=== PATIENT | female | born 1945 | race African-American/Black ===

== ENCOUNTER 2021-04-27 21:58 | Inpatient (IN) | payer MEDICARE, MEDICAID ==
[~2021-04-27] VITALS: Ht 167.6 cm; Wt 74.8 kg
[~2021-04-27 21:58] MED LIST: AMLO5TAB4 PO; ATOR40TA70 MT; OMEP10CA5 PO; PRED1TAB PO; TCNYC15 TOP
[2021-04-27] MEDS ORDERED: KETOROLAC 30MG/ML VIAL IV STA (23:30)
[2021-04-28 01:03] LABS: CHLORIDE 107 mEq/L (98-107)
[2021-04-28 01:04] LABS: HEMATOCRIT. 29.8 % (36.0-48.0); HEMOGLOBIN. 9.7 g/dL (12.0-16.0); MEAN CORPUSCULAR HEMOGLOBIN 25.4 pg (28.0-32.0); MEAN CORPUSCULAR VOLUME 78.3 fL (81.0-99.0); MEAN PLATELET VOLUME 7.1 fl (7.4-10.4); PLATELET 448 x1000/uL (130-400); RED CELL DISTRIBUTION WIDTH 18.8 % (11.6-14.6)
[2021-04-28 02:03] LABS: PLATELET ESTIMATE NORMAL
[2021-04-28] MEDS ORDERED: HYDROCODONE/ACETAMINOPHEN 5/325MG TABLET PO ONE (02:45)
[2021-04-28 02:56] LABS: CLARITY URINE CLEAR (CLEAR); COLOR URINE YELLOW (YELLOW); KETONES URINE 1+ (NEGATIVE); LEUKOCYTE ESTERASE URINE 1+ (NEGATIVE); NITRITE URINE NEGATIVE (NEGATIVE); OCCULT BLOOD URINE NEGATIVE (NEGATIVE); PH URINE 6.5 (4.5-8.0); PROTEIN URINE 1+ (NEGATIVE); SPECIFIC GRAVITY URINE 1.022 (1.005-1.030)
[2021-04-28] MEDS ORDERED: ACETAMINOPHEN 325MG TABLET PO PRN (08:45)
[2021-04-28] MEDS ORDERED: ONDANSETRON HCL 4MG/2ML INJ IV PRN (08:45)
[2021-04-28] MEDS ORDERED: IPRATROPIUM/ALBUTEROL 0.5-3(2.5)MG/3ML NEB HHN PRN (08:45)
[2021-04-28] MEDS ORDERED: DIPHENHYDRAMINE 50MG/ML VIAL IV PRN (08:45)
[2021-04-28] MEDS ORDERED: NALOXONE HCL 0.4MG/ML VIAL IV PRN (09:00)
[2021-04-28] MEDS: ENOXAPARIN 40MG/0.4ML SYR SUBCUT SCH (09:26)
[2021-04-28] MEDS: MORPHINE SULFATE 2 MG/ML CPJ (NOT FOR IM USE) IV PRN ×2 (09:43→14:12)
[2021-04-28 13:00] VITALS: BP 151/82
[2021-04-28 13:20] VITALS: BP 151/82
[2021-04-28] MEDS ORDERED: DEXTROSE 50% WATER 50ML SYRINGE IV PRN (15:30)
[2021-04-28 16:00] VITALS: BP 113/74
[2021-04-28] MEDS ORDERED: POTASSIUM CHLORIDE 20MEQ TABLET SR PO NR (17:00)
[2021-04-28] MEDS: BLOOD SUGAR DIAGNOSTIC STRIP TEST SCH ×2 (17:09→21:00)
[2021-04-28] MEDS: INSULIN LISPRO 100 UNITS/ML SUBCUT SCH ×2 (17:09→21:00)
[2021-04-28] MEDS: LEVOFLOXACIN 500MG PREMIX 100 ML IV SCH (18:00)
[2021-04-28 20:00] VITALS: BP 115/71
[2021-04-28 20:08] LABS: TOTAL IRON BINDING CAPACITY 224 ug/dL (250-450)
[2021-04-28] MEDS: ATORVASTATIN CALCIUM 40MG TABLET PO SCH (21:36)
[2021-04-29] VITALS: BP 136/73
[2021-04-29] MEDS: BLOOD SUGAR DIAGNOSTIC STRIP TEST SCH ×4 (06:36→21:00)
[2021-04-29 06:40] VITALS: BP 113/65
[2021-04-29] MEDS: OMEPRAZOLE 20MG CAPSULE EXTENDED RELEASE PO SCH (06:45)
[2021-04-29] MEDS: INSULIN LISPRO 100 UNITS/ML SUBCUT SCH ×4 (06:52→21:00)
[2021-04-29 08:00] VITALS: BP 124/70
[2021-04-29] MEDS: AMLODIPINE 5MG TABLET PO SCH (09:20)
[2021-04-29] MEDS: ENOXAPARIN 40MG/0.4ML SYR SUBCUT SCH (09:21)
[2021-04-29 12:00] VITALS: BP 115/73
[2021-04-29] MEDS: MORPHINE SULFATE 2 MG/ML CPJ (NOT FOR IM USE) IV PRN (15:28)
[2021-04-29 16:00] VITALS: BP 128/63
[2021-04-29] MEDS: LEVOFLOXACIN 500MG PREMIX 100 ML IV SCH (18:30)
[2021-04-29] MEDS: ATORVASTATIN CALCIUM 40MG TABLET PO SCH (21:45)
[2021-04-30] MEDS: OMEPRAZOLE 20MG CAPSULE EXTENDED RELEASE PO SCH (07:12)
[2021-04-30] MEDS: INSULIN LISPRO 100 UNITS/ML SUBCUT SCH ×4 (07:12→20:46)
[2021-04-30] MEDS: BLOOD SUGAR DIAGNOSTIC STRIP TEST SCH ×4 (07:12→20:46)
[2021-04-30] MEDS: AMLODIPINE 5MG TABLET PO SCH (14:45)
[2021-04-30] MEDS: HYDROCODONE/ACETAMINOPHEN 5/325MG TABLET PO PRN (14:46)
[2021-04-30] MEDS: ENOXAPARIN 40MG/0.4ML SYR SUBCUT SCH (14:46)
[2021-04-30 16:00] VITALS: BP 157/74
[2021-04-30] MEDS: LEVOFLOXACIN 250MG TABLET PO SCH (17:25)
[2021-04-30 20:00] VITALS: BP 166/80
[2021-04-30] MEDS: ATORVASTATIN CALCIUM 40MG TABLET PO SCH (20:46)
[2021-04-30] MEDS: CLONIDINE 0.1MG TABLET PO PRN (20:47)
[2021-05-01] VITALS: BP 148/85
[2021-05-01 04:00] VITALS: BP 179/90
[2021-05-01] MEDS: CLONIDINE 0.1MG TABLET PO PRN (05:56)
[2021-05-01] MEDS: BLOOD SUGAR DIAGNOSTIC STRIP TEST SCH ×4 (06:43→21:17)
[2021-05-01] MEDS: FAMOTIDINE 20MG TABLET PO SCH (06:45)
[2021-05-01] MEDS: INSULIN LISPRO 100 UNITS/ML SUBCUT SCH ×4 (07:36→21:00)
[2021-05-01 08:00] VITALS: BP 168/80
[2021-05-01] MEDS: AMLODIPINE 5MG TABLET PO SCH (08:45)
[2021-05-01] MEDS: ENOXAPARIN 40MG/0.4ML SYR SUBCUT SCH (08:45)
[2021-05-01] MEDS: BISACODYL 10MG SUPP PR SCH ×2 (08:46→09:00)
[2021-05-01 09:04] LABS: CHLORIDE 108 mEq/L (98-107)
[2021-05-01 09:11] LABS: BASOPHILS % 1.1 % (0.0-2.0); EOSINOPHILS % 7.3 % (0.0-5.0); HEMATOCRIT. 26.9 % (36.0-48.0); HEMOGLOBIN. 8.9 g/dL (12.0-16.0); LYMPHOCYTES % 26.1 % (20.0-50.0); MEAN CORPUSCULAR VOLUME 78.7 fL (81.0-99.0); MEAN PLATELET VOLUME 7.2 fl (7.4-10.4); MONOCYTES % 10.9 % (2.0-8.0); NEUTROPHILS % 54.6 % (40.0-76.0); PLATELET 436 x1000/uL (130-400); RED BLOOD CELL COUNT 3.42 mill/uL (4.2-5.4); RED CELL DISTRIBUTION WIDTH 18.8 % (11.6-14.6)
[2021-05-01 12:00] VITALS: BP 152/76
[2021-05-01] MEDS ORDERED: NA PHOS,M-B/NA PHOS,DI-BA ENEMA 118ML PR ONE (12:30)
[2021-05-01] MEDS: HYDROCODONE/ACETAMINOPHEN 5/325MG TABLET PO PRN ×2 (13:12→20:45)
[2021-05-01] MEDS: LEVOFLOXACIN 250MG TABLET PO SCH (13:12)
[2021-05-01 16:00] VITALS: BP 136/71
[2021-05-01 20:00] VITALS: BP 155/72
[2021-05-01] MEDS: ATORVASTATIN CALCIUM 40MG TABLET PO SCH (20:44)
[2021-05-01] MEDS ORDERED: POLYETHYLENE GLYCOL 3350 (17GM) 1 DOSE PACK PO SCH (21:00)
[2021-05-02] VITALS: BP 168/79
[2021-05-02 04:00] VITALS: BP 179/78
[2021-05-02] MEDS: HYDROCODONE/ACETAMINOPHEN 5/325MG TABLET PO PRN ×3 (05:05→17:07)
[2021-05-02] MEDS: CLONIDINE 0.1MG TABLET PO PRN (05:10)
[2021-05-02] MEDS: FAMOTIDINE 20MG TABLET PO SCH (06:39)
[2021-05-02] MEDS: BLOOD SUGAR DIAGNOSTIC STRIP TEST SCH ×3 (06:39→17:07)
[2021-05-02] MEDS: INSULIN LISPRO 100 UNITS/ML SUBCUT SCH ×3 (07:50→17:12)
[2021-05-02 08:00] VITALS: BP 137/68
[2021-05-02] MEDS ORDERED: BISACODYL 10MG SUPP PR SCH (09:00)
[2021-05-02] MEDS: AMLODIPINE 5MG TABLET PO SCH (09:45)
[2021-05-02] MEDS: ENOXAPARIN 40MG/0.4ML SYR SUBCUT SCH (09:50)
[2021-05-02] MEDS: LEVOFLOXACIN 250MG TABLET PO SCH (11:29)
[2021-05-02 12:00] VITALS: BP 127/67
[2021-05-02 16:00] VITALS: BP 120/51
[2021-05-02 18:31] VITALS: BP 120/51
== END 2021-05-02 20:25 | disposition home health service (06) | DRG 553 ==
LOC: ER 21:58 → MICUSO 04-28 04:11 → EDBEDREQ 04-28 04:21 → EDBEDREQTM 04-28 04:21 → 6EST 04-28 11:48
PROVIDERS: ADMIT Internal Medicine; ATTEND Internal Medicine
PROC: 0HBRXZZ Excision of Toe Nail, External Approach (ICD-10-PCS; principal; 2021-04-29)
PROC: 0HBRXZZ Excision of Toe Nail, External Approach (ICD-10-PCS; 2021-04-29)
PROC: 0HBRXZZ Excision of Toe Nail, External Approach (ICD-10-PCS; 2021-04-29)
PROC: 0HBRXZZ Excision of Toe Nail, External Approach (ICD-10-PCS; 2021-04-29)
PROC: 0HBRXZZ Excision of Toe Nail, External Approach (ICD-10-PCS; 2021-04-29)
PROC: 0HBRXZZ Excision of Toe Nail, External Approach (ICD-10-PCS; 2021-04-29)
PROC: 0HBRXZZ Excision of Toe Nail, External Approach (ICD-10-PCS; 2021-04-29)
PROC: 0HBRXZZ Excision of Toe Nail, External Approach (ICD-10-PCS; 2021-04-29)
PROC: 0HBRXZZ Excision of Toe Nail, External Approach (ICD-10-PCS; 2021-04-29)
PROC: 0HBRXZZ Excision of Toe Nail, External Approach (ICD-10-PCS; 2021-04-29)
DX: M16.0 Bilateral primary osteoarthritis of hip (principal); G82.50 Quadriplegia, unspecified; G82.20 Paraplegia, unspecified; K59.2 Neurogenic bowel, not elsewhere classified; B37.49 Other urogenital candidiasis; M87.851 Other osteonecrosis, right femur; M47.816 Spondylosis without myelopathy or radiculopathy, lumbar region; I10 Essential (primary) hypertension; D50.9 Iron deficiency anemia, unspecified; E11.9 Type 2 diabetes mellitus without complications; J45.909 Unspecified asthma, uncomplicated; E78.00 Pure hypercholesterolemia, unspecified; K44.9 Diaphragmatic hernia without obstruction or gangrene; L60.2 Onychogryphosis; L84 Corns and callosities; L89.896 Pressure-induced deep tissue damage of other site; L89.159 Pressure ulcer of sacral region, unspecified stage; L85.3 Xerosis cutis; M48.061 Spinal stenosis, lumbar region without neurogenic claudication; N31.9 Neuromuscular dysfunction of bladder, unspecified; Z74.01 Bed confinement status; Z82.49 Family history of ischemic heart disease and other diseases of the circulatory system; Z86.73 Personal history of transient ischemic attack (TIA), and cerebral infarction without residual deficits; Z87.891 Personal history of nicotine dependence; Z88.0 Allergy status to penicillin; Z99.3 Dependence on wheelchair; Z79.899 Other long term (current) drug therapy
CPT/HCPCS: 36415; 72141; 72146; 72148; 73502; 74176; 80048; 80053; 81003; 82728; 82962; 83540; 83550; 85025; 93005; 93970; 97161; 99285; A6261; J1200; J1650; J1885; J1956; J2270; J2405

== ENCOUNTER 2021-11-28 04:05 | Emergency (ER) | payer MEDICARE, MEDICAID ==
[~2021-11-28] VITALS: Ht 170.2 cm; Wt 83.0 kg
[2021-11-28] MEDS ORDERED: SODIUM CHLORIDE 0.9% 1,000 ML IV ONE (04:45)
[2021-11-28 05:21] LABS: BASOPHILS % 0.7 % (0.0-2.0); EOSINOPHILS % 5.4 % (0.0-5.0); HEMATOCRIT. 29.2 % (36.0-48.0); HEMOGLOBIN. 9.5 g/dL (12.0-16.0); LYMPHOCYTES % 18.8 % (20.0-50.0); MEAN CORPUSCULAR HEMOGLOBIN 25.1 pg (28.0-32.0); MEAN CORPUSCULAR VOLUME 77.3 fL (81.0-99.0); MEAN PLATELET VOLUME 7.4 fl (7.4-10.4); MONOCYTES % 7.3 % (2.0-8.0); NEUTROPHILS % 67.8 % (40.0-76.0); PLATELET 335 x1000/uL (130-400); RED BLOOD CELL COUNT 3.77 mill/uL (4.2-5.4); RED CELL DISTRIBUTION WIDTH 16.9 % (11.6-14.6)
[2021-11-28 05:28] LABS: CHLORIDE 103 mEq/L (98-107)
[2021-11-28] MEDS ORDERED: MORPHINE SULFATE 4 MG/ML CPJ (NOT FOR IM USE) IV ONE (05:45)
[2021-11-28 05:52] LABS: CLARITY URINE CLEAR (CLEAR); COLOR URINE YELLOW (YELLOW); KETONES URINE NEGATIVE (NEGATIVE); LEUKOCYTE ESTERASE URINE NEGATIVE (NEGATIVE); NITRITE URINE POSITIVE (NEGATIVE); OCCULT BLOOD URINE NEGATIVE (NEGATIVE); PROTEIN URINE NEGATIVE (NEGATIVE); SPECIFIC GRAVITY URINE 1.007 (1.005-1.030); UROBILINOGEN URINE 0.2 E.U./dL (0.2-1.0)
[2021-11-28] MEDS ORDERED: LABETALOL HCL VIAL 20 MG/4 ML VIAL IV ONE (06:00)
[2021-11-28] MEDS ORDERED: KETOROLAC 30MG/ML VIAL IV NR (06:00)
[2021-11-28] MEDS ORDERED: LABETALOL 5MG/ML SYR 20 MG/4 ML SYRINGE IV ONE ×2 (06:45→12:00)
[2021-11-28] MEDS ORDERED: ACET-2708 MT (06:45)
[2021-11-28] MEDS ORDERED: HYDROCODONE/ACETAMINOPHEN 5/325MG TABLET PO ONE (07:00)
[2021-11-28] MEDS ORDERED: CLONIDINE 0.2MG TABLET PO NR (14:15)
[2021-11-28] MEDS ORDERED: OMEPRAZOLE 20MG CAPSULE EXTENDED RELEASE PO ONE (17:00)
[2021-11-28 20:00] VITALS: BP 146/75
== END 2021-11-28 20:22 | disposition home or self-care (01) ==
LOC: ER 04:05
DX: M25.551 Pain in right hip (principal); G89.29 Other chronic pain; I48.91 Unspecified atrial fibrillation; J45.909 Unspecified asthma, uncomplicated; E11.9 Type 2 diabetes mellitus without complications; I10 Essential (primary) hypertension; Z86.73 Personal history of transient ischemic attack (TIA), and cerebral infarction without residual deficits; Z88.0 Allergy status to penicillin
CPT/HCPCS: 36415; 71045; 73502; 80053; 81003; 83690; 85025; 93005; 96374; 96375; 96376; 99285; J1885; J2270; J3490; J7030; A4315

== ENCOUNTER 2022-02-12 13:21 | Emergency (ER) | payer MEDICARE, MEDICAID ==
[~2022-02-12] VITALS: Ht 167.6 cm; Wt 90.0 kg
[~2022-02-12 13:21] MED LIST changes: +ACET-2708 MT; +LEVO750T46 MT; +POLY10DR EACHEYE
[2022-02-12] MEDS ORDERED: IBUPROFEN 600MG TABLET PO STA (13:43)
[2022-02-12] MEDS ORDERED: HYDROCODONE/ACETAMINOPHEN 5/325MG TABLET PO STA (13:43)
[2022-02-12 14:40] LABS: CLARITY URINE TURBID (CLEAR); COLOR URINE YELLOW (YELLOW); KETONES URINE NEGATIVE (NEGATIVE); LEUKOCYTE ESTERASE URINE 3+ (NEGATIVE); NITRITE URINE NEGATIVE (NEGATIVE); OCCULT BLOOD URINE TRACE (NEGATIVE); PH URINE >=9.0 (4.5-8.0); PROTEIN URINE 1+ (NEGATIVE); SPECIFIC GRAVITY URINE 1.013 (1.005-1.030); UROBILINOGEN URINE 0.2 E.U./dL (0.2-1.0)
[2022-02-12 14:53] LABS: BASOPHILS % 0.5 % (0.0-2.0); EOSINOPHILS % 3.4 % (0.0-5.0); HEMATOCRIT. 30.5 % (36.0-48.0); HEMOGLOBIN. 10.2 g/dL (12.0-16.0); LYMPHOCYTES % 20.2 % (20.0-50.0); MEAN CORPUSCULAR HEMOGLOBIN 24.6 pg (28.0-32.0); MEAN CORPUSCULAR VOLUME 73.3 fL (81.0-99.0); MONOCYTES % 10.7 % (2.0-8.0); NEUTROPHILS % 65.2 % (40.0-76.0); PLATELET 422 x1000/uL (130-400); RED BLOOD CELL COUNT 4.16 mill/uL (4.2-5.4); RED CELL DISTRIBUTION WIDTH 15.9 % (11.6-14.6)
[2022-02-12 15:01] LABS: CHLORIDE 100 mEq/L (98-107)
[2022-02-12] MEDS ORDERED: CEFTRIAXONE 1 G PREMIX 50 ML IV NR (16:00)
[2022-02-12] MEDS ORDERED: CEPH500C2 MT (16:06)
[2022-02-12] MEDS ORDERED: HYDROCODONE/ACETAMINOPHEN 10/325MG TABLET PO ONE (21:15)
[2022-02-13 12:33] VITALS: BP 131/71
== END 2022-02-13 12:40 | disposition home or self-care (01) ==
LOC: ER 13:31
DX: N39.0 Urinary tract infection, site not specified (principal); I48.91 Unspecified atrial fibrillation; J45.909 Unspecified asthma, uncomplicated; E11.9 Type 2 diabetes mellitus without complications; I10 Essential (primary) hypertension; Z86.73 Personal history of transient ischemic attack (TIA), and cerebral infarction without residual deficits; Z79.899 Other long term (current) drug therapy
CPT/HCPCS: 36415; 80053; 81003; 83690; 85025; 87077; 87086; 87186; 96365; 96366; 99285; J0696

== ENCOUNTER 2022-03-08 09:41 | Inpatient (IN) | payer MEDICARE, MEDICAID ==
[~2022-03-08] VITALS: Ht 170.2 cm; Wt 90.3 kg
[~2022-03-08 09:41] MED LIST changes: +CEPH500C2 MT
[2022-03-08] MEDS ORDERED: SODIUM CHLORIDE 0.9% 1,000 ML IV ONE (11:00)
[2022-03-08 11:02] LABS: BASOPHILS % 0.2 % (0.0-2.0); HEMATOCRIT. 24.8 % (36.0-48.0); HEMOGLOBIN. 7.8 g/dL (12.0-16.0); LYMPHOCYTES % 10.4 % (20.0-50.0); MEAN CORPUSCULAR VOLUME 73.4 fL (81.0-99.0); MONOCYTES % 12.7 % (2.0-8.0); NEUTROPHILS % 76.7 % (40.0-76.0); PLATELET 307 x1000/uL (130-400); RED BLOOD CELL COUNT 3.37 mill/uL (4.2-5.4); RED CELL DISTRIBUTION WIDTH 16.3 % (11.6-14.6)
[2022-03-08 11:04] LABS: CHLORIDE 107 mEq/L (98-107)
[2022-03-08] MEDS ORDERED: POTASSIUM CHLORIDE 20MEQ/PACKET PO ONE (12:00)
[2022-03-08 12:34] LABS: CLARITY URINE TURBID (CLEAR); COLOR URINE ORANGE (YELLOW); KETONES URINE TRACE (NEGATIVE); LEUKOCYTE ESTERASE URINE 3+ (NEGATIVE); NITRITE URINE NEGATIVE (NEGATIVE); OCCULT BLOOD URINE 3+ (NEGATIVE); PROTEIN URINE 3+ (NEGATIVE); SPECIFIC GRAVITY URINE 1.017 (1.005-1.030); UROBILINOGEN URINE 0.2 E.U./dL (0.2-1.0)
[2022-03-08] MEDS ORDERED: CEFTRIAXONE 1 G PREMIX 50 ML IV ONE (12:45)
[2022-03-08] MEDS ORDERED: VANCOMYCIN 1G PREMIX 200 ML IV SCH (12:45)
[2022-03-08] MEDS ORDERED: DEXTROSE 50% WATER 50ML SYRINGE IV PRN (13:30)
[2022-03-08] MEDS ORDERED: LORAZEPAM 0.5MG TABLET PO PRN (13:30)
[2022-03-08] MEDS ORDERED: DOCUSATE SODIUM 100MG CAPSULE PO PRN (13:30)
[2022-03-08] MEDS ORDERED: VANCOMYCIN 1G PREMIX 200 ML IV NR (13:45)
[2022-03-08] MEDS: SODIUM CHLORIDE 0.45% 1,000 ML IV SCH (13:46)
[2022-03-08] MEDS ORDERED: PIPERACILLIN/TAZOBACTAM 3.375 G in DEXTROSE 5% WATER 50 ML IV SCH (14:00)
[2022-03-08] MEDS ORDERED: VANCOMYCIN 1.25GM PMX (XELLIA) 250 ML IV NR (15:00)
[2022-03-08] MEDS ORDERED: KCL 10MEQ/50ML PREMIX 50 ML IV ONE (17:30)
[2022-03-08] MEDS: BLOOD SUGAR DIAGNOSTIC STRIP TEST SCH ×2 (18:17→21:00)
[2022-03-08] MEDS: INSULIN LISPRO 100 UNITS/ML SUBCUT SCH ×2 (18:20→21:00)
[2022-03-08 21:15] VITALS: BP 114/58
[2022-03-08 22:00] VITALS: BP 114/58
[2022-03-08] MEDS: HYDROCODONE/ACETAMINOPHEN 5/325MG TABLET PO PRN (22:27)
[2022-03-08] MEDS ORDERED: MONT-39 PO (23:30)
[2022-03-08] MEDS ORDERED: HYDR-459 PO (23:30)
[2022-03-08] MEDS ORDERED: MELO-106 PO (23:30)
[2022-03-08] MEDS ORDERED: APIX5TAB PO (23:30)
[2022-03-08] MEDS ORDERED: ALPR-393 PO (23:30)
[2022-03-08] MEDS ORDERED: AMLO10TA80 PO (23:30)
[2022-03-08] MEDS ORDERED: FURO20TA4 PO (23:30)
[2022-03-08] MEDS ORDERED: LISI40TA13 PO (23:30)
[2022-03-08] MEDS ORDERED: ALBU6.7H9 INH (23:38)
[2022-03-09] VITALS: BP 128/50
[2022-03-09] MEDS: IPRATROPIUM/ALBUTEROL 0.5-3(2.5)MG/3ML NEB HHN PRN (01:05)
[2022-03-09 04:00] VITALS: BP 100/52
[2022-03-09] MEDS: SODIUM CHLORIDE 0.45% 1,000 ML IV SCH ×2 (04:32→16:10)
[2022-03-09] MEDS: HYDROCODONE/ACETAMINOPHEN 5/325MG TABLET PO PRN ×3 (04:35→21:55)
[2022-03-09] MEDS ORDERED: *PATIENT'S OWN MEDICATION STORAGE XX SCH (06:00)
[2022-03-09] MEDS: BLOOD SUGAR DIAGNOSTIC STRIP TEST SCH ×4 (06:28→21:56)
[2022-03-09 06:39] LABS: BASOPHILS % 0.3 % (0.0-2.0); EOSINOPHILS % 1.3 % (0.0-5.0); HEMATOCRIT. 24.7 % (36.0-48.0); HEMOGLOBIN. 7.8 g/dL (12.0-16.0); LYMPHOCYTES % 12.8 % (20.0-50.0); MEAN CORPUSCULAR HEMOGLOBIN 23.6 pg (28.0-32.0); MEAN CORPUSCULAR VOLUME 74.4 fL (81.0-99.0); MEAN PLATELET VOLUME 8.4 fl (7.4-10.4); MONOCYTES % 8.9 % (2.0-8.0); NEUTROPHILS % 76.7 % (40.0-76.0); PLATELET 286 x1000/uL (130-400); RED BLOOD CELL COUNT 3.31 mill/uL (4.2-5.4); RED CELL DISTRIBUTION WIDTH 16.3 % (11.6-14.6)
[2022-03-09] MEDS: INSULIN LISPRO 100 UNITS/ML SUBCUT SCH ×4 (07:50→21:00)
[2022-03-09 08:00] VITALS: BP 105/55
[2022-03-09] MEDS ORDERED: POTASSIUM CHLORIDE 20MEQ/PACKET PO NR (08:45)
[2022-03-09] MEDS ORDERED: VANCOMYCIN 750 MG in DEXT 5% WATER 250 ML IV SCH (11:00)
[2022-03-09 12:00] VITALS: BP 103/58
[2022-03-09] MEDS ORDERED: NALOXONE HCL 0.4MG/ML VIAL IV PRN (12:00)
[2022-03-09] MEDS: ENOXAPARIN 80MG/0.8ML SYR SUBCUT SCH (13:00)
[2022-03-09] MEDS ORDERED: CEFTRIAXONE 1,000 MG in DEXTROSE 5% WATER 50 ML IV SCH (14:00)
[2022-03-09] MEDS ORDERED: MEROPENEM 1,000 MG in SODIUM CHLORIDE 0.9% 100 ML IV SCH (14:00)
[2022-03-09 16:00] VITALS: BP 106/54
[2022-03-09 20:00] VITALS: BP 130/77
[2022-03-09] MEDS: ATORVASTATIN CALCIUM 40MG TABLET PO SCH (21:56)
[2022-03-10] VITALS: BP 110/53
[2022-03-10] MEDS: ENOXAPARIN 80MG/0.8ML SYR SUBCUT SCH ×2 (00:06→13:19)
[2022-03-10] MEDS: MEROPENEM 1,000 MG in SODIUM CHLORIDE 0.9% 100 ML IV SCH ×3 (00:06→22:25)
[2022-03-10 04:00] VITALS: BP 126/56
[2022-03-10 06:29] LABS: BASOPHILS % 0.9 % (0.0-2.0); HEMATOCRIT. 22.6 % (36.0-48.0); HEMOGLOBIN. 7.1 g/dL (12.0-16.0); LYMPHOCYTES % 9.7 % (20.0-50.0); MEAN CORPUSCULAR HEMOGLOBIN 23.1 pg (28.0-32.0); MEAN CORPUSCULAR VOLUME 73.7 fL (81.0-99.0); MEAN PLATELET VOLUME 8.7 fl (7.4-10.4); MONOCYTES % 7.6 % (2.0-8.0); NEUTROPHILS % 77.8 % (40.0-76.0); PLATELET 311 x1000/uL (130-400); RED BLOOD CELL COUNT 3.07 mill/uL (4.2-5.4); RED CELL DISTRIBUTION WIDTH 16.1 % (11.6-14.6)
[2022-03-10 06:42] LABS: INR 1.2; PROTHROMBIN TIME 12.4 sec (9.6-11.0)
[2022-03-10] MEDS: SODIUM CHLORIDE 0.45% 1,000 ML IV SCH ×2 (06:46→18:31)
[2022-03-10] MEDS: BLOOD SUGAR DIAGNOSTIC STRIP TEST SCH ×4 (07:46→21:09)
[2022-03-10] MEDS: INSULIN LISPRO 100 UNITS/ML SUBCUT SCH ×4 (07:50→21:00)
[2022-03-10 08:00] VITALS: BP_SYST 120; BP_SYST 125; BP_DIAS 54; BP_DIAS 60
[2022-03-10] MEDS: HYDROCODONE/ACETAMINOPHEN 5/325MG TABLET PO PRN (09:04)
[2022-03-10 16:00] VITALS: BP 132/61
[2022-03-10 20:00] VITALS: BP 143/58
[2022-03-10] MEDS: ATORVASTATIN CALCIUM 40MG TABLET PO SCH (21:10)
[2022-03-10] MEDS: ACETAMINOPHEN 325MG TABLET PO PRN (21:10)
[2022-03-11 00:14] VITALS: BP 140/64
[2022-03-11] MEDS: HYDROCODONE/ACETAMINOPHEN 5/325MG TABLET PO PRN ×2 (00:15→12:44)
[2022-03-11] MEDS: ENOXAPARIN 80MG/0.8ML SYR SUBCUT SCH ×2 (00:16→12:43)
[2022-03-11] MEDS ORDERED: VANCOMYCIN 1.25GM PMX (XELLIA) 250 ML IV NR (01:00)
[2022-03-11 04:00] VITALS: BP 117/60
[2022-03-11] MEDS: BLOOD SUGAR DIAGNOSTIC STRIP TEST SCH ×4 (07:16→22:00)
[2022-03-11] MEDS: INSULIN LISPRO 100 UNITS/ML SUBCUT SCH ×4 (07:50→22:00)
[2022-03-11 08:00] VITALS: BP 141/78
[2022-03-11] MEDS: SODIUM CHLORIDE 0.45% 1,000 ML IV SCH (08:57)
[2022-03-11] MEDS: MEROPENEM 1,000 MG in SODIUM CHLORIDE 0.9% 100 ML IV SCH ×2 (08:57→19:51)
[2022-03-11 12:00] VITALS: BP 128/65
[2022-03-11 16:00] VITALS: BP 122/58
[2022-03-11 20:00] VITALS: BP 158/67
[2022-03-11] MEDS: ATORVASTATIN CALCIUM 40MG TABLET PO SCH (20:46)
[2022-03-11] MEDS ORDERED: VANCOMYCIN 1G PREMIX 200 ML IV SCH (21:00)
[2022-03-11] MEDS ORDERED: VANCOMYCIN 750 MG in DEXT 5% WATER 250 ML IV SCH (21:00)
[2022-03-12] VITALS: BP 159/79
[2022-03-12] MEDS: ENOXAPARIN 80MG/0.8ML SYR SUBCUT SCH ×3 (00:20→12:05)
[2022-03-12] MEDS: SODIUM CHLORIDE 0.45% 1,000 ML IV SCH ×2 (04:42→21:50)
[2022-03-12 05:54] LABS: HEMATOCRIT. 22.7 % (36.0-48.0); HEMOGLOBIN. 7.2 g/dL (12.0-16.0); MEAN CORPUSCULAR HEMOGLOBIN 23.4 pg (28.0-32.0); MEAN CORPUSCULAR VOLUME 73.6 fL (81.0-99.0); MEAN PLATELET VOLUME 8.6 fl (7.4-10.4); PLATELET 369 x1000/uL (130-400); RED BLOOD CELL COUNT 3.09 mill/uL (4.2-5.4); RED CELL DISTRIBUTION WIDTH 16.5 % (11.6-14.6)
[2022-03-12 06:15] LABS: CHLORIDE 111 mEq/L (98-107)
[2022-03-12] MEDS: BLOOD SUGAR DIAGNOSTIC STRIP TEST SCH ×4 (06:25→21:40)
[2022-03-12] MEDS: INSULIN LISPRO 100 UNITS/ML SUBCUT SCH ×4 (07:50→21:00)
[2022-03-12 08:00] VITALS: BP 115/72
[2022-03-12] MEDS: HYDROCODONE/ACETAMINOPHEN 5/325MG TABLET PO PRN ×3 (08:56→21:41)
[2022-03-12] MEDS: MEROPENEM 1,000 MG in SODIUM CHLORIDE 0.9% 100 ML IV SCH ×2 (08:56→21:39)
[2022-03-12 10:56] LABS: PLATELET ESTIMATE NORMAL
[2022-03-12 12:00] VITALS: BP 117/70
[2022-03-12] MEDS ORDERED: IOHEXOL-350 100 ML BOTTLE ONE (12:27)
[2022-03-12 16:00] VITALS: BP 136/76
[2022-03-12 20:00] VITALS: BP 157/81
[2022-03-12] MEDS: IPRATROPIUM/ALBUTEROL 0.5-3(2.5)MG/3ML NEB HHN PRN (20:33)
[2022-03-12] MEDS: ATORVASTATIN CALCIUM 40MG TABLET PO SCH (21:40)
[2022-03-13] VITALS: BP 148/74
[2022-03-13] MEDS: SODIUM CHLORIDE 0.45% 1,000 ML IV SCH ×2 (00:10→21:35)
[2022-03-13 04:00] VITALS: BP 140/72
[2022-03-13] MEDS: INSULIN LISPRO 100 UNITS/ML SUBCUT SCH ×4 (06:24→21:26)
[2022-03-13] MEDS: BLOOD SUGAR DIAGNOSTIC STRIP TEST SCH ×4 (06:24→21:07)
[2022-03-13 08:06] LABS: HEMOGLOBIN. 7.6 g/dL (12.0-16.0); MEAN CORPUSCULAR HEMOGLOBIN 23.5 pg (28.0-32.0); MEAN CORPUSCULAR VOLUME 73.8 fL (81.0-99.0); MEAN PLATELET VOLUME 8.2 fl (7.4-10.4); PLATELET 386 x1000/uL (130-400); RED BLOOD CELL COUNT 3.25 mill/uL (4.2-5.4); RED CELL DISTRIBUTION WIDTH 16.7 % (11.6-14.6)
[2022-03-13 08:15] VITALS: BP 158/71
[2022-03-13 08:47] LABS: CHLORIDE 107 mEq/L (98-107)
[2022-03-13] MEDS: MEROPENEM 1,000 MG in SODIUM CHLORIDE 0.9% 100 ML IV SCH ×2 (09:31→21:34)
[2022-03-13] MEDS: HYDROCODONE/ACETAMINOPHEN 5/325MG TABLET PO PRN ×3 (09:32→21:25)
[2022-03-13 12:00] VITALS: BP 143/75
[2022-03-13] MEDS: ENOXAPARIN 80MG/0.8ML SYR SUBCUT SCH ×2 (13:37→21:23)
[2022-03-13] MEDS: ACETAMINOPHEN 325MG TABLET PO PRN (14:58)
[2022-03-13] MEDS ORDERED: NA PHOS,M-B/NA PHOS,DI-BA ENEMA 118ML PR NR ×2 (15:45)
[2022-03-13 16:00] VITALS: BP 140/72
[2022-03-13 18:38] LABS: PLATELET ESTIMATE NORMAL
[2022-03-13 20:00] VITALS: BP 140/75
[2022-03-13] MEDS: IPRATROPIUM/ALBUTEROL 0.5-3(2.5)MG/3ML NEB HHN PRN (20:08)
[2022-03-13] MEDS: LACTULOSE 20G/30ML UDC PO SCH (21:24)
[2022-03-13] MEDS: ATORVASTATIN CALCIUM 40MG TABLET PO SCH (21:34)
[2022-03-14] VITALS (10 sets, daily range): BP systolic 136–180; BP diastolic 66–83
[2022-03-14] MEDS: HYDROCODONE/ACETAMINOPHEN 5/325MG TABLET PO PRN ×2 (04:32→09:00)
[2022-03-14 07:15] LABS: MEAN CORPUSCULAR HEMOGLOBIN 23.3 pg (28.0-32.0); MEAN CORPUSCULAR VOLUME 72.1 fL (81.0-99.0); MEAN PLATELET VOLUME 8.2 fl (7.4-10.4); PLATELET 398 x1000/uL (130-400); RED BLOOD CELL COUNT 2.84 mill/uL (4.2-5.4); RED CELL DISTRIBUTION WIDTH 16.2 % (11.6-14.6)
[2022-03-14 07:21] LABS: FERRITIN 127 ng/mL (10-291)
[2022-03-14] MEDS: INSULIN LISPRO 100 UNITS/ML SUBCUT SCH ×4 (07:23→20:58)
[2022-03-14] MEDS: BLOOD SUGAR DIAGNOSTIC STRIP TEST SCH ×4 (07:23→20:58)
[2022-03-14] MEDS: LACTULOSE 20G/30ML UDC PO SCH ×3 (07:23→20:57)
[2022-03-14 07:34] LABS: FOLIC ACID (FOLATE) SERUM >20 ng/mL ng/mL (>5.38); VITAMIN B12 SERUM 845 pg/mL (211-911)
[2022-03-14 07:44] LABS: HEMOGLOBIN. 6.6 g/dL (12.0-16.0)
[2022-03-14 07:45] LABS: HEMATOCRIT. 20.5 % (36.0-48.0)
[2022-03-14 07:48] LABS: CHLORIDE 106 mEq/L (98-107)
[2022-03-14 07:53] LABS: TOTAL IRON BINDING CAPACITY 201 ug/dL (250-450)
[2022-03-14] MEDS: MEROPENEM 1,000 MG in SODIUM CHLORIDE 0.9% 100 ML IV SCH ×2 (08:59→20:58)
[2022-03-14] MEDS: SORBITOL 70% SOLN 30ML PO SCH (09:00)
[2022-03-14] MEDS: HYDROCODONE/ACETAMINOPHEN 10/325MG TABLET PO PRN ×2 (13:05→20:57)
[2022-03-14] MEDS: CLONIDINE 0.1MG TABLET PO PRN (16:03)
[2022-03-14] MEDS: ATORVASTATIN CALCIUM 40MG TABLET PO SCH (20:57)
[2022-03-14 21:44] LABS: PLATELET ESTIMATE NORMAL
[2022-03-15] VITALS (10 sets, daily range): BP systolic 138–166; BP diastolic 62–92
[2022-03-15] MEDS: LACTULOSE 20G/30ML UDC PO SCH ×3 (05:22→21:52)
[2022-03-15] MEDS: HYDROCODONE/ACETAMINOPHEN 5/325MG TABLET PO PRN (05:33)
[2022-03-15] MEDS: BLOOD SUGAR DIAGNOSTIC STRIP TEST SCH ×4 (06:32→21:07)
[2022-03-15] MEDS: INSULIN LISPRO 100 UNITS/ML SUBCUT SCH ×4 (07:50→21:00)
[2022-03-15 08:49] LABS: BASOPHILS % 1.5 % (0.0-2.0); EOSINOPHILS % 5.9 % (0.0-5.0); HEMATOCRIT. 23.3 % (36.0-48.0); HEMOGLOBIN. 7.8 g/dL (12.0-16.0); LYMPHOCYTES % 11.1 % (20.0-50.0); MEAN CORPUSCULAR HEMOGLOBIN 24.5 pg (28.0-32.0); MEAN CORPUSCULAR VOLUME 73.5 fL (81.0-99.0); MEAN PLATELET VOLUME 8.1 fl (7.4-10.4); MONOCYTES % 11.6 % (2.0-8.0); NEUTROPHILS % 69.9 % (40.0-76.0); PLATELET 349 x1000/uL (130-400); RED BLOOD CELL COUNT 3.18 mill/uL (4.2-5.4); RED CELL DISTRIBUTION WIDTH 17.8 % (11.6-14.6)
[2022-03-15 09:02] LABS: CHLORIDE 107 mEq/L (98-107)
[2022-03-15] MEDS: SORBITOL 70% SOLN 30ML PO SCH (09:54)
[2022-03-15] MEDS: HYDROCODONE/ACETAMINOPHEN 10/325MG TABLET PO PRN ×3 (09:54→21:52)
[2022-03-15] MEDS: MEROPENEM 1,000 MG in SODIUM CHLORIDE 0.9% 100 ML IV SCH ×2 (12:43→21:53)
[2022-03-15 16:04] LABS: HEMATOCRIT 29.8 % (36.0-48.0); HEMOGLOBIN 9.5 g/dL (12.0-16.0); MEAN CORPUSCULAR HEMOGLOBIN 24.7 pg (28.0-32.0); MEAN CORPUSCULAR VOLUME 77.8 fL (81.0-99.0); PLATELET 372 x1000/uL (130-400); RED BLOOD CELL COUNT 3.83 mill/uL (4.2-5.4); RED CELL DISTRIBUTION WIDTH 17.9 % (11.6-14.6)
[2022-03-15] MEDS: PANTOPRAZOLE SODIUM 40 MG/VIAL IV SCH (17:35)
[2022-03-15] MEDS: ATORVASTATIN CALCIUM 40MG TABLET PO SCH (21:52)
[2022-03-16] VITALS: BP 141/85
[2022-03-16] MEDS ORDERED: HALOPERIDOL LACTATE 5MG/ML VIAL IM PRN (03:00)
[2022-03-16] MEDS ORDERED: HALOPERIDOL LACTATE 5MG/ML VIAL IM ONE (03:00)
[2022-03-16 04:00] VITALS: BP 144/87
[2022-03-16] MEDS: LACTULOSE 20G/30ML UDC PO SCH ×3 (06:15→21:01)
[2022-03-16] MEDS: HYDROCODONE/ACETAMINOPHEN 10/325MG TABLET PO PRN (06:15)
[2022-03-16] MEDS: BLOOD SUGAR DIAGNOSTIC STRIP TEST SCH ×4 (06:53→21:01)
[2022-03-16 07:17] LABS: HEMATOCRIT. 27.9 % (36.0-48.0); HEMOGLOBIN. 9.2 g/dL (12.0-16.0); MEAN CORPUSCULAR HEMOGLOBIN 25.3 pg (28.0-32.0); MEAN CORPUSCULAR VOLUME 76.3 fL (81.0-99.0); MEAN PLATELET VOLUME 7.3 fl (7.4-10.4); PLATELET 391 x1000/uL (130-400); RED BLOOD CELL COUNT 3.65 mill/uL (4.2-5.4)
[2022-03-16 07:19] LABS: CHLORIDE 105 mEq/L (98-107)
[2022-03-16] MEDS: INSULIN LISPRO 100 UNITS/ML SUBCUT SCH ×4 (07:21→21:00)
[2022-03-16 08:00] VITALS: BP 149/69
[2022-03-16] MEDS: SORBITOL 70% SOLN 30ML PO SCH (09:24)
[2022-03-16] MEDS: PANTOPRAZOLE SODIUM 40 MG/VIAL IV SCH ×2 (09:24→18:03)
[2022-03-16] MEDS: MEROPENEM 1,000 MG in SODIUM CHLORIDE 0.9% 100 ML IV SCH ×2 (09:25→21:00)
[2022-03-16 12:00] VITALS: BP 153/68
[2022-03-16] MEDS: HYDROCODONE/ACETAMINOPHEN 5/325MG TABLET PO PRN ×2 (15:08→21:01)
[2022-03-16 16:00] VITALS: BP 154/83
[2022-03-16 17:57] LABS: PLATELET ESTIMATE NORMAL
[2022-03-16 20:00] VITALS: BP 120/60
[2022-03-16] MEDS: ATORVASTATIN CALCIUM 40MG TABLET PO SCH (21:00)
[2022-03-17] VITALS (7 sets, daily range): BP systolic 111–163; BP diastolic 71–83
[2022-03-17] MEDS: HYDROCODONE/ACETAMINOPHEN 10/325MG TABLET PO PRN ×3 (00:50→16:53)
[2022-03-17] MEDS: HYDROCODONE/ACETAMINOPHEN 5/325MG TABLET PO PRN ×2 (04:11→21:02)
[2022-03-17] MEDS: IPRATROPIUM/ALBUTEROL 0.5-3(2.5)MG/3ML NEB HHN PRN (05:02)
[2022-03-17] MEDS: LACTULOSE 20G/30ML UDC PO SCH ×3 (05:07→13:10)
[2022-03-17] MEDS: BLOOD SUGAR DIAGNOSTIC STRIP TEST SCH ×4 (07:09→20:52)
[2022-03-17 07:24] LABS: BASOPHILS % 0.6 % (0.0-2.0); EOSINOPHILS % 4.3 % (0.0-5.0); HEMATOCRIT. 29.3 % (36.0-48.0); HEMOGLOBIN. 9.6 g/dL (12.0-16.0); LYMPHOCYTES % 23.2 % (20.0-50.0); MEAN CORPUSCULAR HEMOGLOBIN 25.1 pg (28.0-32.0); MEAN CORPUSCULAR VOLUME 76.2 fL (81.0-99.0); MEAN PLATELET VOLUME 7.2 fl (7.4-10.4); NEUTROPHILS % 61.9 % (40.0-76.0); PLATELET 432 x1000/uL (130-400); RED BLOOD CELL COUNT 3.84 mill/uL (4.2-5.4); RED CELL DISTRIBUTION WIDTH 18.5 % (11.6-14.6)
[2022-03-17 07:32] LABS: CHLORIDE 103 mEq/L (98-107)
[2022-03-17] MEDS: INSULIN LISPRO 100 UNITS/ML SUBCUT SCH ×4 (07:50→21:03)
[2022-03-17] MEDS: SORBITOL 70% SOLN 30ML PO SCH ×2 (09:00→09:23)
[2022-03-17] MEDS: PANTOPRAZOLE SODIUM 40 MG/VIAL IV SCH ×2 (09:23→16:53)
[2022-03-17] MEDS: DOCUSATE SODIUM 100MG CAPSULE PO SCH ×2 (12:58→16:54)
[2022-03-17] MEDS: MEROPENEM 1,000 MG in SODIUM CHLORIDE 0.9% 100 ML IV SCH ×2 (12:58→21:01)
[2022-03-17] MEDS: ONDANSETRON HCL 4MG/2ML INJ IV PRN (13:11)
[2022-03-17] MEDS ORDERED: BISACODYL 5MG TABLET PO NR (17:00)
[2022-03-17] MEDS: METOCLOPRAMIDE HCL 10MG/2ML VIAL IV SCH ×2 (17:38→23:18)
[2022-03-17] MEDS ORDERED: MINERAL OIL ENEMA 133ML PR NR (21:00)
[2022-03-17] MEDS: ATORVASTATIN CALCIUM 40MG TABLET PO SCH (21:02)
[2022-03-17] MEDS: SENNOSIDES/DOCUSATE SOD 8.6/50MG TABLET PO SCH (21:02)
[2022-03-17] MEDS: ACETAMINOPHEN 325MG TABLET PO PRN (23:46)
[2022-03-18 04:00] VITALS: BP 158/80
[2022-03-18] MEDS: HYDROCODONE/ACETAMINOPHEN 10/325MG TABLET PO PRN ×3 (04:13→17:17)
[2022-03-18] MEDS: METOCLOPRAMIDE HCL 10MG/2ML VIAL IV SCH ×3 (05:53→17:15)
[2022-03-18] MEDS: MEROPENEM 1,000 MG in SODIUM CHLORIDE 0.9% 100 ML IV SCH ×3 (05:53→22:16)
[2022-03-18 06:50] LABS: BASOPHILS % 0.5 % (0.0-2.0); EOSINOPHILS % 2.8 % (0.0-5.0); HEMATOCRIT. 26.4 % (36.0-48.0); HEMOGLOBIN. 8.9 g/dL (12.0-16.0); LYMPHOCYTES % 20.4 % (20.0-50.0); MEAN CORPUSCULAR HEMOGLOBIN 25.4 pg (28.0-32.0); MEAN CORPUSCULAR VOLUME 75.6 fL (81.0-99.0); MEAN PLATELET VOLUME 6.9 fl (7.4-10.4); MONOCYTES % 9.2 % (2.0-8.0); NEUTROPHILS % 67.1 % (40.0-76.0); PLATELET 410 x1000/uL (130-400); RED CELL DISTRIBUTION WIDTH 18.9 % (11.6-14.6)
[2022-03-18 07:02] LABS: CHLORIDE 104 mEq/L (98-107)
[2022-03-18] MEDS: BLOOD SUGAR DIAGNOSTIC STRIP TEST SCH ×4 (07:39→21:00)
[2022-03-18] MEDS: INSULIN LISPRO 100 UNITS/ML SUBCUT SCH ×4 (07:39→21:00)
[2022-03-18 08:00] VITALS: BP 158/72
[2022-03-18] MEDS: SORBITOL 70% SOLN 30ML PO SCH (08:45)
[2022-03-18] MEDS: PANTOPRAZOLE SODIUM 40 MG/VIAL IV SCH ×2 (08:58→17:15)
[2022-03-18] MEDS: DOCUSATE SODIUM 100MG CAPSULE PO SCH ×2 (08:58→17:16)
[2022-03-18] MEDS ORDERED: BISACODYL 5MG TABLET PO SCH (09:00)
[2022-03-18 11:41] VITALS: BP 156/69
[2022-03-18 16:00] VITALS: BP 151/79
[2022-03-18] MEDS ORDERED: MINERAL OIL ENEMA 133ML PR NR ×2 (18:45→21:00)
[2022-03-18] MEDS: BISACODYL 5MG TABLET PO SCH (18:57)
[2022-03-18 20:34] VITALS: BP 169/91
[2022-03-18] MEDS: SENNOSIDES/DOCUSATE SOD 8.6/50MG TABLET PO SCH (20:42)
[2022-03-18] MEDS: ACETAMINOPHEN 325MG TABLET PO PRN (20:42)
[2022-03-18] MEDS: ATORVASTATIN CALCIUM 40MG TABLET PO SCH (20:42)
[2022-03-19] VITALS: BP 159/76
[2022-03-19] MEDS: METOCLOPRAMIDE HCL 10MG/2ML VIAL IV SCH ×4 (00:32→17:49)
[2022-03-19] MEDS: BISACODYL 5MG TABLET PO SCH ×4 (00:33→17:26)
[2022-03-19] MEDS: HYDROCODONE/ACETAMINOPHEN 10/325MG TABLET PO PRN (00:34)
[2022-03-19 04:00] VITALS: BP 181/79
[2022-03-19] MEDS: CLONIDINE 0.1MG TABLET PO PRN (04:50)
[2022-03-19 05:47] LABS: BASOPHILS % 0.7 % (0.0-2.0); EOSINOPHILS % 1.3 % (0.0-5.0); HEMATOCRIT. 28.7 % (36.0-48.0); HEMOGLOBIN. 9.5 g/dL (12.0-16.0); LYMPHOCYTES % 14.3 % (20.0-50.0); MEAN CORPUSCULAR HEMOGLOBIN 24.9 pg (28.0-32.0); MEAN CORPUSCULAR VOLUME 75.2 fL (81.0-99.0); NEUTROPHILS % 76.7 % (40.0-76.0); PLATELET 482 x1000/uL (130-400); RED BLOOD CELL COUNT 3.82 mill/uL (4.2-5.4); RED CELL DISTRIBUTION WIDTH 19.2 % (11.6-14.6)
[2022-03-19] MEDS: MEROPENEM 1,000 MG in SODIUM CHLORIDE 0.9% 100 ML IV SCH ×3 (06:09→22:03)
[2022-03-19 06:10] LABS: CHLORIDE 102 mEq/L (98-107)
[2022-03-19] MEDS: INSULIN LISPRO 100 UNITS/ML SUBCUT SCH ×4 (06:10→21:00)
[2022-03-19] MEDS: BLOOD SUGAR DIAGNOSTIC STRIP TEST SCH ×4 (06:10→21:14)
[2022-03-19 08:19] VITALS: BP 144/80
[2022-03-19] MEDS ORDERED: BISACODYL 10MG SUPP PR SCH (09:00)
[2022-03-19] MEDS: IPRATROPIUM/ALBUTEROL 0.5-3(2.5)MG/3ML NEB HHN PRN (09:13)
[2022-03-19] MEDS: SORBITOL 70% SOLN 30ML PO SCH (09:58)
[2022-03-19] MEDS: PANTOPRAZOLE SODIUM 40 MG/VIAL IV SCH ×2 (09:58→17:48)
[2022-03-19] MEDS: DOCUSATE SODIUM 100MG CAPSULE PO SCH ×2 (09:59→17:00)
[2022-03-19] MEDS ORDERED: MAGNESIUM CITRATE 300ML SOLUTION PO NR (10:00)
[2022-03-19 12:33] VITALS: BP 143/79
[2022-03-19 16:20] VITALS: BP 126/69
[2022-03-19 20:00] VITALS: BP 123/75
[2022-03-19] MEDS: ACETAMINOPHEN 325MG TABLET PO PRN (20:13)
[2022-03-19] MEDS: SENNOSIDES/DOCUSATE SOD 8.6/50MG TABLET PO SCH (21:00)
[2022-03-19] MEDS ORDERED: NALOXONE HCL 0.4MG/ML VIAL IV PRN (21:30)
[2022-03-19] MEDS: ATORVASTATIN CALCIUM 40MG TABLET PO SCH (22:02)
[2022-03-20] VITALS: BP 151/74
[2022-03-20] MEDS: HYDROCODONE/ACETAMINOPHEN 10/325MG TABLET PO PRN ×4 (00:34→17:31)
[2022-03-20] MEDS: METOCLOPRAMIDE HCL 10MG/2ML VIAL IV SCH (00:35)
[2022-03-20 04:00] VITALS: BP 155/69
[2022-03-20] MEDS: MEROPENEM 1,000 MG in SODIUM CHLORIDE 0.9% 100 ML IV SCH ×3 (06:07→21:19)
[2022-03-20] MEDS: BLOOD SUGAR DIAGNOSTIC STRIP TEST SCH ×4 (06:31→20:48)
[2022-03-20 07:26] LABS: BASOPHILS % 0.8 % (0.0-2.0); HEMATOCRIT. 28.6 % (36.0-48.0); HEMOGLOBIN. 9.4 g/dL (12.0-16.0); LYMPHOCYTES % 20.3 % (20.0-50.0); MEAN CORPUSCULAR VOLUME 76.3 fL (81.0-99.0); MONOCYTES % 7.9 % (2.0-8.0); PLATELET 453 x1000/uL (130-400); RED BLOOD CELL COUNT 3.75 mill/uL (4.2-5.4); RED CELL DISTRIBUTION WIDTH 19.6 % (11.6-14.6)
[2022-03-20] MEDS: INSULIN LISPRO 100 UNITS/ML SUBCUT SCH ×4 (07:34→20:48)
[2022-03-20 07:46] LABS: CHLORIDE 104 mEq/L (98-107)
[2022-03-20 08:00] VITALS: BP 153/71
[2022-03-20] MEDS: SORBITOL 70% SOLN 30ML PO SCH (09:44)
[2022-03-20] MEDS: PANTOPRAZOLE SODIUM 40 MG/VIAL IV SCH ×2 (09:44→16:31)
[2022-03-20 12:00] VITALS: BP 143/67
[2022-03-20] MEDS: DULOXETINE HCL 20MG DR CAPSULE PO SCH ×2 (13:19→20:40)
[2022-03-20 16:00] VITALS: BP 166/74
[2022-03-20] MEDS: IPRATROPIUM/ALBUTEROL 0.5-3(2.5)MG/3ML NEB HHN PRN (16:18)
[2022-03-20] MEDS: MONTELUKAST SODIUM 10MG TABLET PO SCH (16:31)
[2022-03-20 20:00] VITALS: BP 158/70
[2022-03-20] MEDS: SENNOSIDES/DOCUSATE SOD 8.6/50MG TABLET PO SCH (20:40)
[2022-03-20] MEDS: ATORVASTATIN CALCIUM 40MG TABLET PO SCH (20:40)
[2022-03-21] VITALS: BP 150/70
[2022-03-21 04:00] VITALS: BP 180/70
[2022-03-21] MEDS: CLONIDINE 0.1MG TABLET PO PRN ×3 (04:10→16:50)
[2022-03-21] MEDS: HYDROCODONE/ACETAMINOPHEN 10/325MG TABLET PO PRN ×3 (04:10→21:17)
[2022-03-21] MEDS: INSULIN LISPRO 100 UNITS/ML SUBCUT SCH ×4 (05:22→21:00)
[2022-03-21] MEDS: MEROPENEM 1,000 MG in SODIUM CHLORIDE 0.9% 100 ML IV SCH ×3 (05:22→21:17)
[2022-03-21] MEDS: BLOOD SUGAR DIAGNOSTIC STRIP TEST SCH ×4 (05:22→21:13)
[2022-03-21 07:46] VITALS: BP 163/82
[2022-03-21] MEDS ORDERED: LIDOCAINE HCL/PF 1% 10 MG/ML 5ML VIAL ONE (08:20)
[2022-03-21] MEDS: SORBITOL 70% SOLN 30ML PO SCH (10:30)
[2022-03-21] MEDS: PANTOPRAZOLE SODIUM 40 MG/VIAL IV SCH ×2 (10:30→16:48)
[2022-03-21] MEDS: DULOXETINE HCL 20MG DR CAPSULE PO SCH ×2 (10:31→21:16)
[2022-03-21 10:48] LABS: BASOPHILS % 1.5 % (0.0-2.0); EOSINOPHILS % 2.9 % (0.0-5.0); HEMOGLOBIN. 8.5 g/dL (12.0-16.0); LYMPHOCYTES % 13.3 % (20.0-50.0); MEAN CORPUSCULAR HEMOGLOBIN 25.8 pg (28.0-32.0); MEAN CORPUSCULAR VOLUME 76.2 fL (81.0-99.0); MEAN PLATELET VOLUME 6.6 fl (7.4-10.4); MONOCYTES % 6.7 % (2.0-8.0); NEUTROPHILS % 75.6 % (40.0-76.0); PLATELET 439 x1000/uL (130-400); RED BLOOD CELL COUNT 3.28 mill/uL (4.2-5.4); RED CELL DISTRIBUTION WIDTH 19.3 % (11.6-14.6)
[2022-03-21 10:56] LABS: CHLORIDE 103 mEq/L (98-107)
[2022-03-21 12:00] VITALS: BP 157/56
[2022-03-21] MEDS ORDERED: POTASSIUM CHLORIDE 20MEQ TABLET SR PO NR (13:00)
[2022-03-21 16:00] VITALS: BP 166/57
[2022-03-21] MEDS: MONTELUKAST SODIUM 10MG TABLET PO SCH ×2 (16:48→16:54)
[2022-03-21 20:00] VITALS: BP 160/57
[2022-03-21] MEDS: ATORVASTATIN CALCIUM 40MG TABLET PO SCH (21:17)
[2022-03-21] MEDS: SENNOSIDES/DOCUSATE SOD 8.6/50MG TABLET PO SCH (21:19)
[2022-03-22] VITALS: BP 171/86
[2022-03-22] MEDS: CLONIDINE 0.1MG TABLET PO PRN ×2 (01:19→17:26)
[2022-03-22] MEDS: ACETAMINOPHEN 325MG TABLET PO PRN ×3 (01:19→15:30)
[2022-03-22 04:00] VITALS: BP 156/74
[2022-03-22] MEDS: BLOOD SUGAR DIAGNOSTIC STRIP TEST SCH ×4 (05:00→21:39)
[2022-03-22] MEDS: HYDROCODONE/ACETAMINOPHEN 10/325MG TABLET PO PRN ×2 (05:06→12:36)
[2022-03-22] MEDS: INSULIN LISPRO 100 UNITS/ML SUBCUT SCH ×4 (07:48→21:00)
[2022-03-22 08:00] VITALS: BP 172/78
[2022-03-22] MEDS: SORBITOL 70% SOLN 30ML PO SCH (08:22)
[2022-03-22] MEDS: DULOXETINE HCL 20MG DR CAPSULE PO SCH ×2 (08:22→21:40)
[2022-03-22] MEDS: PANTOPRAZOLE SODIUM 40 MG/VIAL IV SCH ×2 (08:22→17:26)
[2022-03-22 10:09] LABS: BASOPHILS % 1.2 % (0.0-2.0); EOSINOPHILS % 4.2 % (0.0-5.0); HEMATOCRIT. 26.5 % (36.0-48.0); HEMOGLOBIN. 8.8 g/dL (12.0-16.0); LYMPHOCYTES % 17.8 % (20.0-50.0); MEAN CORPUSCULAR HEMOGLOBIN 25.5 pg (28.0-32.0); MONOCYTES % 6.5 % (2.0-8.0); NEUTROPHILS % 70.3 % (40.0-76.0); PLATELET 453 x1000/uL (130-400); RED BLOOD CELL COUNT 3.44 mill/uL (4.2-5.4); RED CELL DISTRIBUTION WIDTH 19.5 % (11.6-14.6)
[2022-03-22 10:25] LABS: CHLORIDE 103 mEq/L (98-107)
[2022-03-22 12:00] VITALS: BP 150/72
[2022-03-22] MEDS: ZINC SULFATE 220 MG ( 50 ) CAPSULE PO SCH (12:36)
[2022-03-22] MEDS: ASCORBIC ACID 500 MG TABLET PO SCH (12:36)
[2022-03-22] MEDS: CLOPIDOGREL 75MG TABLET PO SCH (15:30)
[2022-03-22 16:00] VITALS: BP 199/97
[2022-03-22] MEDS ORDERED: LABETALOL 5MG/ML SYR 20 MG/4 ML SYRINGE IV PRN (17:15)
[2022-03-22] MEDS: MONTELUKAST SODIUM 10MG TABLET PO SCH (17:26)
[2022-03-22] MEDS: TRAMADOL 50MG TABLET PO PRN (17:33)
[2022-03-22 20:00] VITALS: BP 167/64
[2022-03-22] MEDS: SENNOSIDES/DOCUSATE SOD 8.6/50MG TABLET PO SCH (21:40)
[2022-03-22] MEDS: ATORVASTATIN CALCIUM 40MG TABLET PO SCH (21:40)
[2022-03-22] MEDS: ENOXAPARIN 80MG/0.8ML SYR SUBCUT SCH (21:43)
[2022-03-22] MEDS: MORPHINE SULFATE 2 MG/ML CPJ (NOT FOR IM USE) IV PRN (21:49)
[2022-03-23] VITALS: BP 167/80
[2022-03-23 04:00] VITALS: BP 180/77
[2022-03-23] MEDS: BLOOD SUGAR DIAGNOSTIC STRIP TEST SCH ×3 (06:19→17:15)
[2022-03-23] MEDS: MORPHINE SULFATE 2 MG/ML CPJ (NOT FOR IM USE) IV PRN (06:24)
[2022-03-23] MEDS: ONDANSETRON HCL 4MG/2ML INJ IV PRN (06:30)
[2022-03-23 06:48] LABS: BASOPHILS % 0.9 % (0.0-2.0); EOSINOPHILS % 3.5 % (0.0-5.0); HEMATOCRIT. 26.3 % (36.0-48.0); HEMOGLOBIN. 8.7 g/dL (12.0-16.0); LYMPHOCYTES % 16.2 % (20.0-50.0); MEAN CORPUSCULAR HEMOGLOBIN 25.2 pg (28.0-32.0); MEAN CORPUSCULAR VOLUME 76.2 fL (81.0-99.0); MEAN PLATELET VOLUME 6.9 fl (7.4-10.4); MONOCYTES % 7.7 % (2.0-8.0); NEUTROPHILS % 71.7 % (40.0-76.0); PLATELET 443 x1000/uL (130-400); RED BLOOD CELL COUNT 3.45 mill/uL (4.2-5.4); RED CELL DISTRIBUTION WIDTH 19.5 % (11.6-14.6)
[2022-03-23 06:53] LABS: CHLORIDE 99 mEq/L (98-107)
[2022-03-23] MEDS: INSULIN LISPRO 100 UNITS/ML SUBCUT SCH ×3 (07:50→17:15)
[2022-03-23 08:00] VITALS: BP 213/96
[2022-03-23] MEDS ORDERED: AMLODIPINE 5MG TABLET PO SCH (09:00)
[2022-03-23] MEDS: PANTOPRAZOLE SODIUM 40 MG/VIAL IV SCH ×2 (09:12→17:00)
[2022-03-23] MEDS: DULOXETINE HCL 20MG DR CAPSULE PO SCH (09:13)
[2022-03-23] MEDS: ENOXAPARIN 80MG/0.8ML SYR SUBCUT SCH (09:13)
[2022-03-23] MEDS: HYDROCODONE/ACETAMINOPHEN 10/325MG TABLET PO PRN ×2 (09:13→14:49)
[2022-03-23] MEDS: CLOPIDOGREL 75MG TABLET PO SCH (09:14)
[2022-03-23] MEDS: ZINC SULFATE 220 MG ( 50 ) CAPSULE PO SCH (09:14)
[2022-03-23] MEDS: ASCORBIC ACID 500 MG TABLET PO SCH (09:14)
[2022-03-23] MEDS: SORBITOL 70% SOLN 30ML PO SCH (09:14)
[2022-03-23] MEDS: CLONIDINE 0.1MG TABLET PO PRN (09:14)
[2022-03-23] MEDS: TRAMADOL 50MG TABLET PO PRN (11:33)
[2022-03-23 12:00] VITALS: BP 139/85
[2022-03-23] MEDS ORDERED: PROT40 MT (12:58)
[2022-03-23] MEDS ORDERED: CLOP75TA15 PO (12:58)
[2022-03-23 15:39] VITALS: BP 142/78
[2022-03-23 16:00] VITALS: BP 154/70
[2022-03-23] MEDS: MONTELUKAST SODIUM 10MG TABLET PO SCH (17:00)
[2022-03-23] MEDS ORDERED: DULOXETINE HCL 30MG DR CAPSULE PO SCH (21:00)
== END 2022-03-23 17:33 | disposition home health service (06) | DRG 871 ==
LOC: ER 09:41 → 6WST 12:21 → EDBEDREQTM 12:24 → EDBEDREQ 12:24 → ENRESERV 19:21
PROVIDERS: ADMIT Internal Medicine; ATTEND Internal Medicine
PROC: 4A00X4Z Measurement of Central Nervous Electrical Activity, External Approach (ICD-10-PCS; principal; 2022-03-15)
PROC: 30243N1 Transfusion of Nonautologous Red Blood Cells into Central Vein, Percutaneous Approach (ICD-10-PCS; 2022-03-15)
PROC: 02HV33Z Insertion of Infusion Device into Superior Vena Cava, Percutaneous Approach (ICD-10-PCS; 2022-03-21)
PROC: B5181ZA Fluoroscopy of Superior Vena Cava using Low Osmolar Contrast, Guidance (ICD-10-PCS; 2022-03-21)
DX: A41.9 Sepsis, unspecified organism (principal); G92.8 Other toxic encephalopathy; I63.9 Cerebral infarction, unspecified; M87.9 Osteonecrosis, unspecified; E87.0 Hyperosmolality and hypernatremia; N17.9 Acute kidney failure, unspecified; K92.2 Gastrointestinal hemorrhage, unspecified; K59.2 Neurogenic bowel, not elsewhere classified; G82.20 Paraplegia, unspecified; N39.0 Urinary tract infection, site not specified; M48.02 Spinal stenosis, cervical region; M16.0 Bilateral primary osteoarthritis of hip; K76.0 Fatty (change of) liver, not elsewhere classified; R16.0 Hepatomegaly, not elsewhere classified; I48.91 Unspecified atrial fibrillation; K80.20 Calculus of gallbladder without cholecystitis without obstruction; C50.912 Malignant neoplasm of unspecified site of left female breast; J45.909 Unspecified asthma, uncomplicated; K56.41 Fecal impaction; K44.9 Diaphragmatic hernia without obstruction or gangrene; M47.816 Spondylosis without myelopathy or radiculopathy, lumbar region; R60.9 Edema, unspecified; E88.09 Other disorders of plasma-protein metabolism, not elsewhere classified; I25.10 Atherosclerotic heart disease of native coronary artery without angina pectoris; N31.9 Neuromuscular dysfunction of bladder, unspecified; F41.9 Anxiety disorder, unspecified; E11.40 Type 2 diabetes mellitus with diabetic neuropathy, unspecified; I10 Essential (primary) hypertension; R60.1 Generalized edema; E87.6 Hypokalemia; I34.0 Nonrheumatic mitral (valve) insufficiency; I36.1 Nonrheumatic tricuspid (valve) insufficiency; I27.21 Secondary pulmonary arterial hypertension; M62.81 Muscle weakness (generalized); Z74.01 Bed confinement status; Z79.899 Other long term (current) drug therapy; Z79.01 Long term (current) use of anticoagulants; Z88.0 Allergy status to penicillin; I69.398 Other sequelae of cerebral infarction; Z79.84 Long term (current) use of oral hypoglycemic drugs; Z86.718 Personal history of other venous thrombosis and embolism; D50.9 Iron deficiency anemia, unspecified; K52.9 Noninfective gastroenteritis and colitis, unspecified; M48.061 Spinal stenosis, lumbar region without neurogenic claudication
CPT/HCPCS: 36415; 36573; 70496; 70498; 70551; 71045; 72195; 74176; 76700; 80048; 80053; 80202; 81003; 82270; 82607; 82728; 82746; 82962; 83036; 83540; 83550; 83605; 83880; 84145; 84484; 85018; 85025; 85027; 85044; 85651; 86850; 86900; 86920; 87077; 93005; 93306; 94640; 94664; 95816; 99291; C1725; C9113; J0696; J1650; J1815; J2185; J2270; J2405; J2765; J3370; J3480; J3490; J7030; J7050; J7060; P9016; Q9967